=== PATIENT | female | born 1980 | race Caucasian/White ===

== ENCOUNTER 2020-10-10 16:53 | Emergency (ER) | payer OTHER ==
[~2020-10-10 16:53] MED LIST: BACTRIM DS TAB1 EACH PO; DIFLUCAN150 MG PO; FLONASE ALLER15.8 ML; KEFLEX250 MG PO; MOTRIN600 MG PO; MUCINEX 600MG600 MG PO; NORCO 5-325 TA1 EACH PO; PYRIDIUM200 MG PO; TESSALON PERLE100 M1 PO
[2020-10-10 17:34] LABS: BILIRUBIN NEGATIVE (NEGATIVE); BLOOD NEGATIVE Ery/uL (NEGATIVE); CLARITY CLEAR (CLEAR); COLOR YELLOW (YELLOW); GLUCOSE (U) TRACE mg/dL (NORMAL); LEUKOCYTES NEGATIVE Leu/uL (NEGATIVE); NITRITE NEGATIVE (NEGATIVE); PROTEIN 1+ mg/dL (NEGATIVE); SPECIFIC GRAVITY >=1.030 (1.001-1.030); UROBILINOGEN 0.2 mg/dL (0.2-1.0); pH 5.5 (5.0-9.0)
[2020-10-10 17:36] LABS: BASOPHIL 0.3 % (0-2); EOSINOPHIL 2.3 % (0-5); HCT 37.4 % (37.0-47.0); HGB 12.4 g/dl (12.5-16.0); LYMPHOCYTE 14.2 % (15-48); MCH 30.7 pg (25.0-31.0); MCHC 33.2 g/dL (32.0-36.0); MCV 92.6 fL (78.0-100.0); MONOCYTE 5.2 % (0-12); MPV 10.4 fL (6.0-9.5); NRBC 0; PLT 194 K/uL (150-400); RBC 4.04 M/uL (4.20-5.40); RDW 13.9 % (11.5-14.0); WBC 11.8 K/uL (4.0-10.5)
[2020-10-10 17:39] LABS: BACTERIA TRACE; SQUAMOUS EPITHELIAL CELLS RARE; URINARY RBC RARE
[2020-10-10 17:40] LABS: PROTHROMBIN TIME 12.5 SECONDS (11.4-13.6); PTT 36.1 SECONDS (22.2-34.7)
[2020-10-10 17:41] LABS: D-DIMER 1.03 ug/mLFEU (0.00-0.41)
[2020-10-10 17:47] LABS: ALBUMIN 2.3 g/dL (3.4-5.0); BILIRUBIN - TOTAL 0.2 mg/dL (0.2-1.0); BUN/CREAT RATIO (CALC) 11.5 RATIO; C-REACTIVE PROTEIN 2.4 mg/dL (<=0.90); CREATININE 0.61 mg/dL (0.51-0.95); GLOBULIN (CALCULATION) 4.5 g/dL; POTASSIUM 3.5 mmol/L (3.5-5.1); TOTAL PROTEIN 6.8 g/dL (6.4-8.2)
[2020-10-10 17:53] LABS: LACTIC ACID 1.7 mmol/L (0.4-1.9)
[2020-10-10] MEDS ORDERED: VENTOLIN HFA IN18 GM INH (21:01)
== END 2020-10-10 21:26 | disposition home or self-care (01) ==
LOC: FER 16:53
PROVIDERS: Emergency Medicine
DX: J20.9 Acute bronchitis, unspecified (principal); I10 Essential (primary) hypertension; E11.9 Type 2 diabetes mellitus without complications; Z79.4 Long term (current) use of insulin; Z87.891 Personal history of nicotine dependence; Z20.822 Contact with and (suspected) exposure to COVID-19
CPT/HCPCS: 36415; 36600; 80053; 81001; 82803; 83605; 83880; 85025; 85379; 85610; 85730; 86140; 87040; 93005; 94640; 94664; U0002

== ENCOUNTER 2020-12-13 16:47 | Emergency (ER) | payer OTHER ==
[~2020-12-13 16:47] MED LIST changes: +VENTOLIN HFA IN18 GM INH
== END 2020-12-13 19:05 | disposition home or self-care (01) ==
LOC: FER 16:47
DX: O9A.213 Injury, poisoning and certain other consequences of external causes complicating pregnancy, third trimester (principal); S83.91XA Sprain of unspecified site of right knee, initial encounter; O99.891 Other specified diseases and conditions complicating pregnancy; M25.521 Pain in right elbow; O16.3 Unspecified maternal hypertension, third trimester; O24.913 Unspecified diabetes mellitus in pregnancy, third trimester; Z87.891 Personal history of nicotine dependence; W18.09XA Striking against other object with subsequent fall, initial encounter; Y92.481 Parking lot as the place of occurrence of the external cause; Z3A.38 38 weeks gestation of pregnancy
CPT/HCPCS: 73564

== ENCOUNTER 2020-12-21 15:54 | Emergency (ER) | payer OTHER ==
[2020-12-21 17:22] LABS: BASOPHIL 0.3 % (0-2); EOSINOPHIL 3.5 % (0-5); HGB 9.6 g/dl (12.5-16.0); LYMPHOCYTE 12.1 % (15-48); MCH 31.3 pg (25.0-31.0); MCHC 33.1 g/dL (32.0-36.0); MCV 94.5 fL (78.0-100.0); MONOCYTE 6.7 % (0-12); MPV 9.3 fL (6.0-9.5); NEUTROPHIL 76.4 % (41-80); NRBC 0; PLT 206 K/uL (150-400); RBC 3.07 M/uL (4.20-5.40); RDW 13.6 % (11.5-14.0); WBC 8.8 K/uL (4.0-10.5)
[2020-12-21 17:35] LABS: BILIRUBIN NEGATIVE (NEGATIVE); BLOOD 3+ Ery/uL (NEGATIVE); CLARITY CLEAR (CLEAR); COLOR YELLOW (YELLOW); GLUCOSE (U) NORMAL (NORMAL); LEUKOCYTES 2+ Leu/uL (NEGATIVE); NITRITE NEGATIVE (NEGATIVE); PROTEIN NEGATIVE (NEGATIVE); UROBILINOGEN 0.2 mg/dL (0.2-1.0)
[2020-12-21 17:36] LABS: INR 0.94 (0.9-1.2); PROTHROMBIN TIME 11.9 SECONDS (11.4-13.6); PTT 31.9 SECONDS (22.2-34.7)
[2020-12-21 17:43] LABS: ALBUMIN 2.2 g/dL (3.4-5.0); BILIRUBIN - TOTAL 0.2 mg/dL (0.2-1.0); BUN/CREAT RATIO (CALC) 15.3 RATIO; CREATININE 0.85 mg/dL (0.51-0.95); GLOBULIN (CALCULATION) 4.2 g/dL; POTASSIUM 3.7 mmol/L (3.5-5.1); TOTAL PROTEIN 6.4 g/dL (6.4-8.2); URIC ACID 4.7 mg/dL (2.6-6.2)
[2020-12-21 17:43] LABS: AMORPHOUS URATES CRYSTALS MODERATE; BACTERIA TRACE
== END 2020-12-21 18:13 | disposition home or self-care (01) ==
LOC: FER 15:54
PROVIDERS: Emergency Medicine
DX: L01.00 Impetigo, unspecified (principal); F17.210 Nicotine dependence, cigarettes, uncomplicated
CPT/HCPCS: 36415; 71045; 80053; 81001; 83880; 84550; 85025; 85610; 85730; 99283

== ENCOUNTER 2021-03-29 07:42 | Emergency (ER) | payer OTHER ==
[2021-03-29 08:45] LABS: INFLUENZA A NAA NEGATIVE (NEGATIVE)
[2021-03-29 08:52] LABS: CORONAVIRUS 2019 SARS-COV-2 POSITIVE (NEGATIVE)
[2021-03-29 09:20] LABS: BASOPHIL 0.3 % (0-2); EOSINOPHIL 0 % (0-5); HGB 12.5 g/dl (12.5-16.0); LYMPHOCYTE 18.9 % (15-48); MCH 29.6 pg (25.0-31.0); MCHC 32.9 g/dL (32.0-36.0); MCV 89.8 fL (78.0-100.0); MPV 9.8 fL (6.0-9.5); NEUTROPHIL 74.2 % (41-80); NRBC 0; PLT 133 K/uL (150-400); RBC 4.23 M/uL (4.20-5.40); RDW 14.9 % (11.5-14.0)
[2021-03-29 09:24] LABS: WBC 3.3 K/uL (4.0-10.5)
[2021-03-29 09:35] LABS: ALBUMIN 3.1 g/dL (3.4-5.0); BILIRUBIN - TOTAL 0.2 mg/dL (0.2-1.0); BUN/CREAT RATIO (CALC) 12.4 RATIO; CREATININE 0.89 mg/dL (0.51-0.95); GLOBULIN (CALCULATION) 4.6 g/dL; POTASSIUM 3.9 mmol/L (3.5-5.1); TOTAL PROTEIN 7.7 g/dL (6.4-8.2)
[2021-03-29] MEDS ORDERED: VENTOLIN HFA IN18 GM INH (12:31)
== END 2021-03-29 12:55 | disposition home or self-care (01) ==
LOC: FER 07:42
PROVIDERS: Internal Medicine
DX: U07.1 COVID-19 (principal); E11.9 Type 2 diabetes mellitus without complications; I10 Essential (primary) hypertension; Z87.891 Personal history of nicotine dependence; Z79.899 Other long term (current) drug therapy
CPT/HCPCS: 36415; 80053; 85025; 85379; J2405; M0243; Q0244; U0002

== ENCOUNTER → 2021-08-07 | Day surgery (SDC) | payer OTHER ==
[~2021-08-07] VITALS: Ht 180.3 cm; Wt 136.1 kg
[~2021-08-07] MED LIST changes: +CITALOPRAM HBR40 MG PO; +INSULIN LI100 UNIT/2 SC; +LANTUS100 UNIT/1 PO; +LOPRESSOR25 MG PO; +MELOXICAM15 MG PO
[2021-08-07 08:28] LABS: HCG (URINE) SCREEN NEGATIVE (NEGATIVE)
[2021-08-07 08:49] LABS: BUN/CREAT RATIO (CALC) 16.7 RATIO; CREATININE 0.66 mg/dL (0.51-0.95); POTASSIUM 4.4 mmol/L (3.5-5.1)
== END | disposition home or self-care (01) ==
LOC: FAS 07:35
PROVIDERS: Anesthesiology
DX: K01.1 Impacted teeth (principal); K02.9 Dental caries, unspecified; K04.7 Periapical abscess without sinus; E11.9 Type 2 diabetes mellitus without complications; E66.01 Morbid (severe) obesity due to excess calories; I10 Essential (primary) hypertension; Z79.4 Long term (current) use of insulin; R00.0 Tachycardia, unspecified
CPT/HCPCS: 36415; 80048; 84703; 93005; J1100; J2250; J2405; J2704; J3010; J7120